=== PATIENT | male | born 1995 | race Caucasian/White ===

== ENCOUNTER 2020-12-22 09:44 | Emergency (ER) | payer MEDICAID ==
[~2020-12-22] VITALS: Ht 170.2 cm; Wt 75.5 kg
--- NOTE | 2020-12-22 10:04 | NUR ---
PT W/ HX OF MIGRAINE S[place]UZ 2/2 HYDROCEPHALIS WITH FINISH CLEANER SHUNT. S[place] X 2 DAYS WITH N/V PAIN WORSE TODAY. TOOK 400MG ADVIL AT 0830 W/O EFFECT. DR GRIGGS AT BEDSIDE, PT ASSESSMENT, POC REVIEWED AND QUESTIONS ANSWERED. VSS, CALL LIGHT W/I REACH
[2020-12-22] MEDS ORDERED: KETOROLAC 30 MG/1 ML ONE (10:28)
[2020-12-22] MEDS ORDERED: METOCLOPRAMIDE 5 MG/ML, 2ML ONE (10:28)
[2020-12-22] MEDS ORDERED: DIPHENHYDRAMINE 50 MG/ML, 1ML ONE (10:28)
[2020-12-22] MEDS ORDERED: METOCLOPRAMIDE 5 MG/ML, 2ML IVPush ONE (10:30)
[2020-12-22] MEDS ORDERED: DIPHENHYDRAMINE 50 MG/ML, 1ML IVPush ONE (10:30)
[2020-12-22] MEDS ORDERED: SODIUM CHLORIDE FLUSH 10ML SYR IVF ONE (10:30)
[2020-12-22] MEDS ORDERED: SODIUM CHLORIDE 0.9% 1,000ML IVBOLUS ONE (10:30)
[2020-12-22] MEDS ORDERED: KETOROLAC 30 MG/1 ML IVPush ONE (10:30)
--- NOTE | 2020-12-22 10:44 | NUR ---
PIV EST AND PT MED NOTED. IVF INFUSING W/O DIFFICULTY. CALL LIGHT W/I REACH
--- NOTE | 2020-12-22 11:22 | NUR ---
CT DELAYED AT 1020 AND NOW DELAYED FOR OTHER CRITICAL PATIENTS FIRST
[2020-12-22 11:39] VITALS: BP 107/57
--- NOTE | 2020-12-22 11:39 | NUR ---
IVF COMPLETED, VSS, PT STATES SANTACRUZ PAIN IS RESSOLVED. PT TO CT WITH TECH TRANSPORT
--- NOTE | 2020-12-22 12:35 | NUR ---
Patient/Caregiver given discharge instructions and they have confirmed that they understand the instructions. Patient ambulatory with steady gait.
== END 2020-12-22 12:36 | disposition home or self-care (01) ==
LOC: ED 10:30
DX: R51.9 Headache, unspecified (principal); R11.2 Nausea with vomiting, unspecified; F17.200 Nicotine dependence, unspecified, uncomplicated
CPT/HCPCS: 70450; 96361; 96374; 96375; 99284; J1200; J1885; J2765; J7030